=== PATIENT | male | born 1990 | race Caucasian/White ===

== ENCOUNTER 2019-10-24 16:47 | Emergency (ER) | payer OTHER ==
[~2019-10-24] VITALS: Ht 170.2 cm; Wt 132.0 kg
--- NOTE | 2019-10-24 17:28 | NUR ---
PT C/O "CHEST COLD" FOR SEVERAL DAYS. FEVER SINCE YESTERDAY. DIARRHEA SINCE THURSDAY. PT HAS TAKEN ACETAMINOPHEN FOR FEVER, BUT NO MOTRIN SINCE IT GIVES HIM "ACID REFLUX AND REALLY SHARP PAIN". NAD NOTED AT THIS TIME. PT DENIES HAVING FLU SHOT AND HAS BEEN AROUND COWORKERS WITH FLU.
[2019-10-24] MEDS ORDERED: RANI-467 PO (17:30)
[2019-10-24] MEDS ORDERED: ACETAMINOPHEN 500 MG TABLET ONE (18:18)
[2019-10-24] MEDS ORDERED: ACETAMINOPHEN 325 MG TABLET PO ONE (18:30)
[2019-10-24 18:31] LABS: BASOPHILS # (AUTO) 0.03 x10^3/uL (0-0.1); BASOPHILS % (AUTO) 0 % (0-1); EOSINOPHILS # (AUTO) 0.08 x10^3/uL (0-0.4); EOSINOPHILS % (AUTO) 1 % (1-7); LYMPHOCYTES # (AUTO) 0.95 x10^3/uL (1-3.4); LYMPHOCYTES % (AUTO) 13 % (22-44); MD NO; MEAN CORPUSCULAR HEMOGLOBIN 27.5 pg (27.5-34.5); MEAN CORPUSCULAR HGB CONC 33.5 g/dL (33.2-36.2); MEAN CORPUSCULAR VOLUME 81.9 fL (81-97); MONOCYTES # (AUTO) 0.78 x10^3/uL (0.2-0.8); MONOCYTES % (AUTO) 11 % (2-9); NEUTROPHILS # (AUTO) 5.47 x10^3/uL (1.8-6.8); NEUTROPHILS % (AUTO) 75 % (42-75); PLATELET COUNT 219 x10^3/uL (130-400); RED BLOOD COUNT 5.45 x10^6/uL (4.38-5.82); RED CELL DISTRIBUTION WIDTH 14.7 % (9.4-14.8)
[2019-10-24 18:36] LABS: RAPID INFLUENZA A Negative (Negative); RAPID INFLUENZA B POSITIVE (Negative)
[2019-10-24 18:42] LABS: ALBUMIN 3.7 g/dL (3.4-5.0); ANION GAP 5 mmol/L (5-15); CALCIUM 8.8 mg/dL (8.5-10.1); CHLORIDE 105 mmol/L (98-107)
[2019-10-24 18:43] LABS: CREATININE 1.09 mg/dL (0.7-1.3)
[2019-10-24 19:06] VITALS: BP 137/81
== END 2019-10-24 19:09 | disposition home or self-care (01) ==
LOC: ED 19:00
DX: J10.1 Influenza due to other identified influenza virus with other respiratory manifestations (principal)
CPT/HCPCS: 36415; 71045; 80048; 82040; 85025; 87400; 93005; 99284